=== PATIENT | male | born 1950 | race Caucasian/White ===

== ENCOUNTER → 2020-02-03 | Outpatient (CLI) | payer OTHER ==
[~2020-02-03] MED LIST: OMNIPAQUE 350 MG/ML, 100ML BOTTLE ONE
[2020-02-03 11:57] LABS: BASOPHILS # (AUTO) 0.02 x10^3/uL (0-0.1); BASOPHILS % (AUTO) 0 % (0-1); EOSINOPHILS # (AUTO) 0.21 x10^3/uL (0-0.4); EOSINOPHILS % (AUTO) 3 % (1-7); LYMPHOCYTES # (AUTO) 2.56 x10^3/uL (1-3.4); LYMPHOCYTES % (AUTO) 33 % (22-44); MD NO; MEAN CORPUSCULAR HEMOGLOBIN 31.6 pg (27.5-34.5); MEAN CORPUSCULAR HGB CONC 33.9 g/dL (33.2-36.2); MEAN CORPUSCULAR VOLUME 92.9 fL (81-97); MEAN PLATELET VOLUME 8.4 fL (7.4-10.4); MONOCYTES # (AUTO) 0.62 x10^3/uL (0.2-0.8); MONOCYTES % (AUTO) 8 % (2-9); NEUTROPHILS # (AUTO) 4.37 x10^3/uL (1.8-6.8); NEUTROPHILS % (AUTO) 56 % (42-75); PLATELET COUNT 212 x10^3/uL (130-400); RED BLOOD COUNT 4.99 x10^6/uL (4.38-5.82); RED CELL DISTRIBUTION WIDTH 13.5 % (9.4-14.8)
[2020-02-03 12:06] LABS: ALANINE AMINOTRANSFERASE 44 U/L (12-78); ALBUMIN 3.9 g/dL (3.4-5.0); ANION GAP 5 mmol/L (5-15); CALCIUM 9.3 mg/dL (8.5-10.1); CHLORIDE 111 mmol/L (98-107); CREATININE 1.24 mg/dL (0.7-1.3)
[2020-02-03 12:09] LABS: ALKALINE PHOSPHATASE 95 U/L (45-117); BILIRUBIN,TOTAL 0.6 mg/dL (0.2-1.0); TOTAL PROTEIN 7.4 g/dL (6.4-8.2)
== END | disposition home or self-care (01) ==
LOC: RAD 11:15
PROVIDERS: ATTEND Urology
DX: C61 Malignant neoplasm of prostate (principal); K40.90 Unilateral inguinal hernia, without obstruction or gangrene, not specified as recurrent
CPT/HCPCS: 36415; 74177; 80053; 85025; Q9967

== ENCOUNTER 2020-02-04 09:00 | Outpatient (CLI) | payer OTHER | END 2020-02-04 23:59 | disposition home or self-care (01) | LOC: RAD 09:00 | PROVIDERS: ATTEND Urology | DX: C61 Malignant neoplasm of prostate (principal) | CPT/HCPCS: 78306; A9503 ==

== ENCOUNTER 2020-03-07 10:01 | Outpatient (CLI) | payer OTHER ==
[2020-03-07] MEDS ORDERED: BP Med PO (10:37)
== END 2020-03-07 23:59 | disposition home or self-care (01) ==
LOC: STAR 10:01
PROVIDERS: ATTEND Urology
DX: Z02.9 Encounter for administrative examinations, unspecified (principal)

== ENCOUNTER 2020-03-09 05:48 | Observation (INO) | payer OTHER ==
[2020-03-07 11:34] LABS: BASOPHILS # (AUTO) 0.02 x10^3/uL (0-0.1); BASOPHILS % (AUTO) 0 % (0-1); EOSINOPHILS # (AUTO) 0.21 x10^3/uL (0-0.4); EOSINOPHILS % (AUTO) 4 % (1-7); LYMPHOCYTES # (AUTO) 2.57 x10^3/uL (1-3.4); LYMPHOCYTES % (AUTO) 44 % (22-44); MD NO; MEAN CORPUSCULAR HEMOGLOBIN 32.2 pg (27.5-34.5); MEAN CORPUSCULAR HGB CONC 34.3 g/dL (33.2-36.2); MEAN CORPUSCULAR VOLUME 93.6 fL (81-97); MEAN PLATELET VOLUME 8.1 fL (7.4-10.4); MONOCYTES # (AUTO) 0.57 x10^3/uL (0.2-0.8); MONOCYTES % (AUTO) 10 % (2-9); NEUTROPHILS # (AUTO) 2.53 x10^3/uL (1.8-6.8); NEUTROPHILS % (AUTO) 43 % (42-75); PLATELET COUNT 186 x10^3/uL (130-400); RED BLOOD COUNT 4.87 x10^6/uL (4.38-5.82); RED CELL DISTRIBUTION WIDTH 13.2 % (9.4-14.8)
[2020-03-07 11:43] LABS: ALANINE AMINOTRANSFERASE 45 U/L (12-78); ALBUMIN 3.9 g/dL (3.4-5.0); ANION GAP 4 mmol/L (5-15); CALCIUM 9.2 mg/dL (8.5-10.1); CHLORIDE 113 mmol/L (98-107); CREATININE 1.17 mg/dL (0.7-1.3)
[2020-03-07 11:45] LABS: ALKALINE PHOSPHATASE 75 U/L (45-117); BILIRUBIN,TOTAL 0.6 mg/dL (0.2-1.0); TOTAL PROTEIN 7.3 g/dL (6.4-8.2)
[~2020-03-09] VITALS: Ht 180.3 cm; Wt 115.3 kg
[~2020-03-09 05:48] MED LIST changes: +BP Med PO; -OMNIPAQUE 350 MG/ML, 100ML BOTTLE ONE
[2020-03-09] MEDS ORDERED: LACTATED RINGERS 1,000 ML IV SCH (06:30)
[2020-03-09] MEDS ORDERED: CHLORHEXIDINE 15 ML UDC MM STA (06:30)
[2020-03-09] MEDS ORDERED: BUPIVACAINE/PF-EPI 0.25% 1:200K ONE (06:31)
[2020-03-09] MEDS ORDERED: OPIUM/BELLADONNA SUPP.RECT 16.2-60 MG ONE (06:31)
[2020-03-09] MEDS ORDERED: OXYB5TAB10 PO (06:43)
[2020-03-09] MEDS ORDERED: ATOR20TA37 PO (06:43)
[2020-03-09] MEDS ORDERED: SUMA50TA4 PO (06:43)
[2020-03-09] MEDS ORDERED: ASPI-515 PO (06:43)
[2020-03-09] MEDS ORDERED: INDO25CA22 PO (06:43)
[2020-03-09] MEDS ORDERED: CYAN500L4 PO (06:43)
[2020-03-09] MEDS ORDERED: TAMS-11 PO (06:43)
[2020-03-09] MEDS ORDERED: LISI-170 PO (06:43)
[2020-03-09] MEDS ORDERED: GABA400C PO (06:43)
[2020-03-09] MEDS ORDERED: FENTANYL PF 250 MCG/5ML ONE (07:16)
[2020-03-09] MEDS ORDERED: PROPOFOL 10 MG/ML, 20ML ONE (07:16)
[2020-03-09] MEDS ORDERED: MIDAZOLAM 1 MG/ML, 2ML ONE (07:16)
[2020-03-09] MEDS ORDERED: ROCURONIUM 10MG/ML,5ML ONE ×3 (07:16→08:42)
[2020-03-09] MEDS ORDERED: LIDOCAINE-MPF 2% ,5ML ONE (07:16)
[2020-03-09] MEDS ORDERED: DEXAMETHASONE 4 MG/ML, 1ML ONE ×2 (07:17)
[2020-03-09] MEDS ORDERED: CEFAZOLIN 1,000 MG ONE ×2 (07:17→07:32)
[2020-03-09] MEDS ORDERED: ONDANSETRON 2MG/ML, 2ML ONE (07:17)
[2020-03-09] MEDS ORDERED: GLYCOPYRROLATE 0.2MG/1ML, 5ML ONE (07:32)
[2020-03-09] MEDS ORDERED: PHENYLEPHRINE 10 MG/ML ONE (07:32)
[2020-03-09] MEDS ORDERED: DIPHENHYDRAMINE 50 MG/ML, 1ML IVPush PRN (11:00)
[2020-03-09] MEDS ORDERED: DIAZEPAM 5 MG/ML, 2ML IVPush PRN (11:00)
[2020-03-09] MEDS ORDERED: OXYcodone 5 MG/5 ML ORAL.SOL UDC PO PRN (11:00)
[2020-03-09] MEDS ORDERED: PROMETHAZINE 25 MG/ML, 1ML IVPush PRN (11:00)
[2020-03-09] MEDS ORDERED: ACETAMINOPHEN 325 MG TABLET PO PRN (11:00)
[2020-03-09] MEDS ORDERED: LABETALOL 5MG/ML, 20ML IV PRN (11:00)
[2020-03-09] MEDS ORDERED: hydrALAzine 20 MG/ML, 1ML IV PRN (11:00)
[2020-03-09] MEDS ORDERED: MEPERIDINE/PF 25MG/0.5ML IVPush PRN (11:00)
[2020-03-09] MEDS ORDERED: ONDANSETRON 2MG/ML, 2ML IVPush PRN (11:00)
[2020-03-09] MEDS ORDERED: FENTANYL PF 100 MCG/2ML ONE ×2 (11:56→12:30)
[2020-03-09] MEDS ORDERED: hydrALAzine 20 MG/ML, 1ML ONE (12:30)
[2020-03-09] MEDS ORDERED: HYDROmorphone 1 MG/ML, 1ML INJ ONE ×2 (12:31→13:35)
[2020-03-09] MEDS ORDERED: LORazepam 2 MG/ML, 1ML ONE (12:31)
[2020-03-09] MEDS: FENTANYL PF 100 MCG/2ML IV PRN ×2 (12:34→12:47)
[2020-03-09] MEDS: HYDROmorphone 1 MG/ML, 1ML INJ IVPush PRN ×3 (12:55→13:37)
[2020-03-09] MEDS ORDERED: [UNRECOGNIZED DRUG - REMARK] XX ONE (15:20)
[2020-03-09] MEDS ORDERED: SUMATRIPTAN 50 MG TABLET PO PRN (15:30)
[2020-03-09] MEDS ORDERED: MORPHINE SULFATE 4 MG/ML, 1ML IV PRN (15:30)
[2020-03-09] MEDS ORDERED: OPIUM/BELLADONNA SUPP.RECT 16.2-60 MG PR PRN (15:30)
[2020-03-09] MEDS: LABETALOL 5MG/ML, 20ML IVPush SCH ×2 (16:00→23:15)
[2020-03-09] MEDS: GABAPENTIN 400 MG CAPSULE PO SCH ×3 (16:00→21:00)
[2020-03-09] MEDS: ACETAMINOPHEN 500 MG TABLET PO SCH ×2 (16:40→23:07)
[2020-03-09] MEDS: D5%-0.45NACL+KCL 20MEQ 1,000 ML IV SCH (16:40)
[2020-03-09] MEDS: OXYcodone IR 5MG TABLET PO PRN ×2 (18:08→23:14)
[2020-03-09 18:49] VITALS: BP 145/78
[2020-03-09 23:10] VITALS: BP 144/78
[2020-03-10] VITALS: BP 134/70
[2020-03-10] MEDS: D5%-0.45NACL+KCL 20MEQ 1,000 ML IV SCH ×3 (02:09→22:00)
[2020-03-10 03:41] VITALS: BP 144/75
[2020-03-10] MEDS: ACETAMINOPHEN 500 MG TABLET PO SCH ×4 (05:21→21:10)
[2020-03-10] MEDS: OXYcodone IR 5MG TABLET PO PRN ×2 (05:24→17:43)
[2020-03-10 06:29] LABS: ANION GAP 7 mmol/L (5-15); CALCIUM 8.2 mg/dL (8.5-10.1); CHLORIDE 109 mmol/L (98-107)
[2020-03-10 07:34] VITALS: BP 149/77
[2020-03-10] MEDS: LISINOPRIL 10 MG TABLET PO SCH (08:47)
[2020-03-10] MEDS: GABAPENTIN 400 MG CAPSULE PO SCH ×3 (08:47→21:00)
[2020-03-10] MEDS: ENOXAPARIN 40 MG/0.4 ML SQ SCH (08:48)
[2020-03-10] MEDS: LABETALOL 5MG/ML, 20ML IVPush SCH ×3 (08:48→23:54)
[2020-03-10 16:44] VITALS: BP 150/80
[2020-03-10] MEDS ORDERED: LACTULOSE 20 GM/30 ML UDC PO PRN (18:00)
[2020-03-10] MEDS ORDERED: BISACODYL 10 MG SUPP PR PRN (18:00)
[2020-03-10] MEDS: CALCIUM CARBONATE 500 MG TAB.CHEW PO PRN (18:38)
[2020-03-10 20:14] VITALS: BP 135/60
[2020-03-10] MEDS: SENNA/DOCUSATE TABLET PO SCH (21:10)
[2020-03-11] VITALS (8 sets, daily range): BP systolic 119–203; BP diastolic 71–107
[2020-03-11] MEDS: ACETAMINOPHEN 500 MG TABLET PO SCH ×4 (03:31→21:53)
[2020-03-11] MEDS: OXYcodone IR 5MG TABLET PO PRN ×2 (03:34→09:22)
[2020-03-11] MEDS: D5%-0.45NACL+KCL 20MEQ 1,000 ML IV SCH ×3 (05:05→21:53)
[2020-03-11] MEDS: LABETALOL 5MG/ML, 20ML IVPush SCH ×2 (08:00→17:53)
[2020-03-11] MEDS: ENOXAPARIN 40 MG/0.4 ML SQ SCH (08:00)
[2020-03-11] MEDS ORDERED: HYDROmorphone 1 MG/ML, 1ML INJ IV ONE (08:30)
[2020-03-11] MEDS ORDERED: MAGNESIUM HYDROXIDE 8%, 30ML UDC PO PRN (08:30)
[2020-03-11] MEDS: LISINOPRIL 10 MG TABLET PO SCH (09:00)
[2020-03-11] MEDS: GABAPENTIN 400 MG CAPSULE PO SCH ×3 (09:00→21:00)
[2020-03-11] MEDS: DOCUSATE 100 MG CAPSULE PO SCH (09:00)
[2020-03-11] MEDS: CALCIUM CARBONATE 500 MG TAB.CHEW PO PRN (09:21)
[2020-03-11] MEDS ORDERED: MEPERIDINE/PF 25MG/0.5ML IM PRN (10:30)
[2020-03-11] MEDS ORDERED: hydrALAzine 20 MG/ML, 1ML IV ONE (10:30)
[2020-03-11] MEDS ORDERED: ONDANSETRON 2MG/ML, 2ML IVPush PRN ×2 (10:30→13:00)
[2020-03-11] MEDS ORDERED: MEPERIDINE/PF 100 MG/ML ONE (10:42)
[2020-03-11] MEDS ORDERED: SIMETHICONE 125 MG CHEW TAB PO PRN (11:00)
[2020-03-11] MEDS ORDERED: METOCLOPRAMIDE 5 MG/ML, 2ML IVPush PRN (13:00)
[2020-03-11] MEDS ORDERED: hydrALAzine 20 MG/ML, 1ML IVPush PRN (13:00)
[2020-03-11] MEDS ORDERED: ENALAPRILAT 1.25 MG/ML, 2ML IVPush PRN (13:00)
[2020-03-11] MEDS ORDERED: BISACODYL 10 MG SUPP PR ONE (13:30)
[2020-03-11] MEDS: KETOROLAC 30 MG/1 ML IV PRN (13:52)
[2020-03-11] MEDS: HYDROmorphone 2 MG/ML, 1ML IVPush PRN ×2 (13:53→17:19)
[2020-03-11 14:25] LABS: BASOPHILS % (AUTO) 0 % (0-1); EOSINOPHILS # (AUTO) 0.01 x10^3/uL (0-0.4); EOSINOPHILS % (AUTO) 0 % (1-7); LYMPHOCYTES # (AUTO) 0.71 x10^3/uL (1-3.4); LYMPHOCYTES % (AUTO) 7 % (22-44); MD NO; MEAN CORPUSCULAR HEMOGLOBIN 31.6 pg (27.5-34.5); MEAN CORPUSCULAR HGB CONC 33.7 g/dL (33.2-36.2); MEAN CORPUSCULAR VOLUME 93.7 fL (81-97); MONOCYTES % (AUTO) 6 % (2-9); NEUTROPHILS # (AUTO) 9.29 x10^3/uL (1.8-6.8); NEUTROPHILS % (AUTO) 88 % (42-75); PLATELET COUNT 165 x10^3/uL (130-400); RED CELL DISTRIBUTION WIDTH 13.2 % (9.4-14.8)
[2020-03-11 14:34] LABS: ALANINE AMINOTRANSFERASE 32 U/L (12-78); ALBUMIN 3.4 g/dL (3.4-5.0); ANION GAP 5 mmol/L (5-15); CALCIUM 8.6 mg/dL (8.5-10.1); CHLORIDE 107 mmol/L (98-107)
[2020-03-11 14:37] LABS: ALKALINE PHOSPHATASE 57 U/L (45-117); BILIRUBIN,TOTAL 0.7 mg/dL (0.2-1.0); CREATININE 0.99 mg/dL (0.7-1.3); TOTAL PROTEIN 6.9 g/dL (6.4-8.2)
[2020-03-11] MEDS: SENNA/DOCUSATE TABLET PO SCH (21:00)
[2020-03-12 00:14] VITALS: BP 107/56
[2020-03-12 00:41] VITALS: BP 116/69
[2020-03-12] MEDS: ACETAMINOPHEN 500 MG TABLET PO SCH ×3 (02:59→16:16)
[2020-03-12] MEDS: HYDROmorphone 2 MG/ML, 1ML IVPush PRN (03:00)
[2020-03-12] MEDS: KETOROLAC 30 MG/1 ML IV PRN (03:49)
[2020-03-12] MEDS: D5%-0.45NACL+KCL 20MEQ 1,000 ML IV SCH ×2 (05:53→16:05)
[2020-03-12 07:53] VITALS: BP 117/72
[2020-03-12 08:09] VITALS: BP 132/72
[2020-03-12] MEDS: LABETALOL 5MG/ML, 20ML IVPush SCH ×3 (08:09→16:16)
[2020-03-12] MEDS: ENOXAPARIN 40 MG/0.4 ML SQ SCH (08:13)
[2020-03-12] MEDS: GABAPENTIN 400 MG CAPSULE PO SCH ×2 (08:13→16:20)
[2020-03-12] MEDS: DOCUSATE 100 MG CAPSULE PO SCH (08:13)
[2020-03-12] MEDS: LISINOPRIL 10 MG TABLET PO SCH (08:14)
[2020-03-12 12:46] VITALS: BP 120/64
[2020-03-12 16:20] VITALS: BP 145/70
== END 2020-03-12 17:30 | disposition home or self-care (01) ==
LOC: OUT 05:48 → 4NE 14:27 → INTOOBSV 23:33 → 4NE 23:33 → OUT 23:33
PROVIDERS: ADMIT Urology; ATTEND Urology
DX: C61 Malignant neoplasm of prostate (principal); Z20.828 Contact with and (suspected) exposure to other viral communicable diseases; K91.89 Other postprocedural complications and disorders of digestive system; K56.7 Ileus, unspecified; K66.0 Peritoneal adhesions (postprocedural) (postinfection); I10 Essential (primary) hypertension; I16.0 Hypertensive urgency; R11.0 Nausea; E78.5 Hyperlipidemia, unspecified; Z90.49 Acquired absence of other specified parts of digestive tract; Z79.82 Long term (current) use of aspirin; Z79.899 Other long term (current) drug therapy; Z87.891 Personal history of nicotine dependence
CPT/HCPCS: 36415; 38571; 55866; 74018; 74021; 80048; 80053; 85014; 85018; 85025; 86850; 86900; 87635; 88305; 88309; 93005; 96361; 96372; 96374; 96375; 96376; G0378; J0360; J0690; J1100; J1170; J1650; J1885; J2175; J2250; J2370; J2405; J2704; J3010; J3480; J3490; J7120; C1729; C1760

== ENCOUNTER 2020-03-16 09:20 | Outpatient (CLI) | payer OTHER ==
[~2020-03-16 09:20] MED LIST changes: +ASPI-515 PO; +ATOR20TA37 PO; +CYAN500L4 PO; +GABA400C PO; +INDO25CA22 PO; +LISI-170 PO; +OXYB5TAB10 PO; +SUMA50TA4 PO; +TAMS-11 PO
== END 2020-03-16 23:59 | disposition home or self-care (01) ==
LOC: RAD 09:20
PROVIDERS: ATTEND Urology
DX: C61 Malignant neoplasm of prostate (principal)
CPT/HCPCS: 51600; 74430; Q9958